=== PATIENT | female | born 1980 | race Caucasian/White ===

== ENCOUNTER 2019-12-15 08:59 | Emergency (ER) | payer OTHER, SELFPAY ==
[2019-12-15 09:03] VITALS: BP 140/97; PULSE 99; RESP 16; TEMP 36.4; O2SAT 96; BMI 46.1
[2019-12-15 09:10] VITALS: BP 140/97; PULSE 99; RESP 16; O2SAT 95
--- NOTE | 2019-12-15 09:19 | W.ED.NECK ---
HPI - Neck Pain/Injury General: Chief Complaint: Neck Pain/Injury Stated Complaint: NECK PAIN Time Seen by Provider: 12/15/19 09:03 History of Present Illness: HPI Narrative: Patient with a history of low back and neck pain. Has had this for years treated by chiropractor about every 2 weeks. Patient did have some neck pain yesterday on left side and she woke up this morning and it was a lot worse on the left and hurting on the right also. Hurts with range of motion of her neck. Has had x-rays and CT of her neck. History of bulging disks. Takes 800 ibuprofen every night complaint: neck pain Onset (ago): hour(s) Quality: burning and aching Duration: constant and progressively worsening Relieving factors: none Associated symptoms: Denies headache(s) or nausea Review of Systems Const: Denies: fever, chills or body aches Eyes: Denies: change in vision or blurry vision ENMT: Denies: throat pain or nasal congestion Card: Denies: chest pain or shortness of breath on exertion Resp: Denies: shortness of breath, productive cough or non-productive cough GI: Denies: abdominal pain, nausea or vomiting Musc: Reports: other (Chronic neck and back pain. Neck pain is worse this morning. Hurts with r); Denies: extremity pain Skin/Breast: Denies: rash Neuro: Reports: other (Patient denies any tingling numbness in her extremities); Denies: headache Psych: Denies: anxiety or depression Nadir/Lymph: Denies: easy bruising PFSH ED PFSH: Social History Smoking and tobacco status: former smoker Physical Exam Const: COMMON NORMALS: no apparent distress, average body habitus and oriented x3 HENMT: COMMON NORMALS: normocephalic HEAD & SCALP: normal to inspection and normocephalic FACE & SINUS: normal facial exam Eye: COMMON NORMALS: conjunctivae normal GENERAL EYE: normal appearance of both eyes CONJUNCTIVA: Yes conjunctivae normal Neck/C-Spine: COMMON NORMALS: no JVD GENERAL: Yes torticollis (Tenderness to the left and right side of the neck extending up into the base of the skull. Pain with range of motion palpation. Worse on the left than the right.) Chest: COMMONS NORMALS: inspection of chest normal Resp: COMMON NORMALS: normal respiratory effort and clear to auscultation bilaterally AUSCULTATION: clear to auscultation bilaterally Cardio: COMMON NORMALS: no JVD, regular rate and regular rhythm RATE: regular rate RHYTHM: regular rhythm GI: COMMON NORMALS: normal to inspection, nondistended, normoactive bowel sounds Extremity: COMMON NORMALS: normal to inspection and full ROM Neuro: COMMON NORMALS: oriented x3 Course Vital Signs: Vital signs: Vital Signs Temperature 97.6 F 12/15/19 09:03 Pulse Rate 99 12/15/19 09:10 Respiratory Rate 16 12/15/19 09:10 Blood Pressure 140/97 12/15/19 09:10 Pulse Oximetry 95 12/15/19 09:10 Coding Level of Care Code ED Computer System Technician for Stevo Fwd Exam Comprehensive
[2019-12-15] MEDS: orphenadrine 30 mg/mL Inj 2 mL 60 MG IM (09:28)
[2019-12-15] MEDS: ketorolac 60 mg/2 mL INJ IM (09:28)
[2019-12-15 09:42] VITALS: PULSE 95; RESP 17; O2SAT 94
== END 2019-12-15 09:43 | disposition home or self-care (01) ==
PROVIDERS: Emergency Provider Nurse Practitioner Family; Family Provider Family Medicine; PCP Family Medicine
DX: M54.5 Low back pain (principal); M54.2 Cervicalgia; G89.29 Other chronic pain; Z87.891 Personal history of nicotine dependence
CPT/HCPCS: 96372; 99281; 99283; J1885; J2360

== ENCOUNTER 2021-04-06 07:13 | Emergency (ER) | payer OTHER, SELFPAY ==
[2021-04-06 07:21] VITALS: BP 159/102; PULSE 80; RESP 16; TEMP 36.7; O2SAT 98; BMI 47.5
--- NOTE | 2021-04-06 07:22 | XR_ITS ---
WS: [id number] Exam: XR ankle RT min 3V* [id number] Date/Time of Exam: 04/06/2021 7:24 AM Reason For Exam: pain No acute fracture or dislocation. The ankle mortise is well-maintained. Mild lateral soft tissue swel ling. XR/XR ankle RT min 3V* [id number] IMPRESSION: 1. Mild lateral soft tissue swelling-no acute fracture.
--- NOTE | 2021-04-06 07:22 | XR_ITS ---
WS: [id number] Exam: XR foot RT min 3V* [id number] Date/Time of Exam: 04/06/2021 7:24 AM Reason For Exam: pain No acute fracture or dislocation. Mild DJD at the first MP joint. No soft tissue foreign bodies are s een. Calcaneal spurs are noted. XR/XR foot RT min 3V* [id number] IMPRESSION: 1. No acute fracture.
--- NOTE | 2021-04-06 07:40 | W.ED.EXTPRO ---
HPI - Extremity Problem General: Chief complaint: Extremity Injury, Lower Stated complaint: fell, R foot pain. PT states she thinks its broke. Time Seen by Provider: 04/06/21 07:16 History of Present Illness: HPI Narrative: 40-year-old female states she was walking and had a injury to her right ankle. In talking to her thumb but she had eversion injury to the right ankle this morning while she was packing her car. She did not hurt anything else she denies striking her head or hurt her hands or wrist. Is complaining of moderate swelling and some early bruising is already started to form she has been able to partially bear weight with some discomfort. MD Complaint: joint swelling and joint pain Onset (ago): minute(s) Pain Consistency: constant Location: right (Ankle) Quality: constant (Throbbing) Relieving factors: elevation and rest Exacerbating factors: range of motion, weight bearing and palpation Associated symptoms: Deny arthralgias, chest pain, fever(s), myalgias, rash or short of breath Review of Systems Const: Denies: fever(s) Card: Denies: chest pain Resp: Denies: dyspnea, productive cough or non-productive cough Skin/Breast: Denies: rash PFSH ED PFSH: Social History Smoking and tobacco status: former smoker Alcohol intake: never Physical Exam Const: COMMON NORMALS: no acute distress GENERAL APPEARANCE: cooperative and comfortable ORIENTATION/CONSCIOUSNESS: Yes awake, Yes oriented to person, Yes oriented to place and Yes oriented to time HENMT: COMMON NORMALS: normocephalic, atraumatic, hearing grossly normal bilaterally and external ears normal HEAD & SCALP: normocephalic and atraumatic EXTERNAL EAR: Yes external ears normal Resp: COMMON NORMALS: normal respiratory effort, No retractions and No use of accessory muscles GI: PALPATION: No Tenderness to palpation present (GI) and No Guarding due to palpation present (GI) Extremity: NARRATIVE EXTREMITY EXAM: Moderate ankle swelling laterally there is a very small superficial abrasion no active bleeding no laceration. Some early ecchymosis laterally tender to the touch patient is able to dorsi and plantarflex with full strength no obvious deformity. Neuro: SENSORIUM/ORIENTATION: Yes oriented to person, Yes oriented to place and Yes oriented to time Skin: COMMON NORMALS: no rashes or lesions noted GENERAL SKIN EXAM: no rashes or lesions noted Course Vital Signs: Vital signs: Vital Signs Temperature 98.1 F 04/06/21 07:21 Pulse Rate 80 04/06/21 07:21 Respiratory Rate 16 04/06/21 07:21 Blood Pressure 159/102 04/06/21 07:21 Pulse Oximetry 98 04/06/21 07:21 MDM - Extremity (Nontraumatic) MDM Narrative: Medical decision making narrative: X-ray of ankle and foot are unremarkable. Ice elevate anti-inflammatories as needed follow-up as needed Discharge Plan Discharge Patient Disposition: Home Clinical Impression: Ankle sprain and strain Condition: Stable Prescriptions: New diclofenac sodium 75 mg tablet,delayed release (DR/EC) 75 mg PO Q12H PRN (Reason: pain) Qty: 20 RF: 0 No Action levothyroxine 125 mcg capsule 125 mcg PO DAILY RF: 0 metformin 1,000 mg tablet 1,000 mg PO DAILY RF: 0 sulfamethoxazole-trimethoprim [Bactrim DS] 800-160 mg tablet 1 tab PO BID RF: 0 glipizide 10 mg tablet 10 mg PO DAILY RF: 0 Zanaflex 4 mg capsule 4 mg PO Q12H PRN (Reason: muscle spasticity) Qty: 14 RF: 0 Discharge Orders: Discharge ED (Routine); Ordered 04/06/21 Ordered By: Alfred Melissa Referrals: Lamar Benito APN [Primary Care Provider] - Patient Instructions: Opioid Safety Activity Restrictions/Additional Instructions: Rest ice elevate anti-inflammatories as needed weightbearing as tolerated Coding Level of Care Code ED Physical Security Manager for Stevo Calloway
[2021-04-06 08:30] VITALS: BP 148/97; PULSE 80; RESP 18; O2SAT 96
== END 2021-04-06 08:32 | disposition home or self-care (01) ==
PROVIDERS: Emergency Provider Family Medicine; PCP Nurse Practitioner Family
DX: S93.401A Sprain of unspecified ligament of right ankle, initial encounter (principal); S96.911A Strain of unspecified muscle and tendon at ankle and foot level, right foot, initial encounter; Z79.84 Long term (current) use of oral hypoglycemic drugs; Z87.891 Personal history of nicotine dependence; X50.1XXA Overexertion from prolonged static or awkward postures, initial encounter
CPT/HCPCS: 73610; 73630; 99282

== ENCOUNTER 2021-05-03 05:29 | Emergency (ER) | payer OTHER, SELFPAY ==
[2021-05-03 05:59] VITALS: BP 126/86; PULSE 93; RESP 16; TEMP 36.4; O2SAT 96; BMI 47.5
--- NOTE | 2021-05-03 06:58 | ED_ITS ---
HPI - Extremity Problem General: Chief complaint: Extremity Injury, Lower Stated complaint: LEFT LEG PAIN Time Seen by Provider: 05/03/21 06:53 History of Present Illness: HPI Narrative: 40-year-old female comes in complaining of left leg pain pain radiating down leg into her toes. She been seen last month for complaint of right ankle pain. Ankle pain seems to better but she has been accommodating the ankle and been seeing a chiropractor that was developed just sciatic-like pain down her leg. There is no other trauma. She has been taking diclofenac. MD Complaint: extremity pain Onset (ago): day(s) Pain Consistency: constant Location: left and lower extremity Quality: sharp and constant Radiation: distal Relieving factors: immobilization Exacerbating factors: range of motion, weight bearing and walking Associated symptoms: Deny arthralgias, chest pain, fever(s), myalgias, rash or short of breath Review of Systems Const: Denies: fever(s) ENMT: Denies: throat pain, ear or mastoid pain, nasal discharge or nasal ric estion Card: Denies: chest pain Resp: Denies: dyspnea, productive cough or non-productive cough GI: Denies: abdominal pain, nausea, vomiting, hematemesis, coffee ground emesis, diarrhea, constipation, bloating, hematochezia or melena : Denies: flank pain, difficulty voiding, dysuria, urinary frequency or urinary urgency Skin/Breast: Denies: rash PFSH ED PFSH: Social History Smoking and tobacco status: former smoker Alcohol intake: never Physical Exam Const: COMMON NORMALS: no acute distress GENERAL APPEARANCE: cooperative and comfortable ORIENTATION/CONSCIOUSNESS: Yes awake, Yes oriented to person, Yes oriented to place and Yes oriented to time Neck/C-Spine: COMMON NORMALS: no JVD Resp: COMMON NORMALS: normal respiratory effort, No retractions, No use of accessory muscles and clear to auscultation bilaterally AUSCULTATION: clear to auscultation bilaterally Cardio: COMMON NORMALS: no JVD, regular rate, regular rhythm and No murmurs present (Cardio) RATE: regular rate RHYTHM: regular rhythm GI: COMMON NORMALS: Soft to palpation and No hepatosplenomegaly present AUSCULTATION: Yes normoactive bowel sounds PALPATION: Yes Soft to palpation, No Tenderness to palpation present (GI), No Guarding due to palpation present (GI) and Yes No hepatosplenomegaly present Extremity: COMMON NORMALS: normal to inspection, capillary refill normal, no clubbing, cyanosis or edema, no calf tenderness and no pedal edema NARRATIVE EXTREMITY EXAM: Dorsum plantar flexion strength 5 5 sensation lower extremities normal positive straight leg raising on the left leg. Neuro: SENSORIUM/ORIENTATION: Yes oriented to person, Yes oriented to place and Yes oriented to time Skin: COMMON NORMALS: no rashes or lesions noted GENERAL SKIN EXAM: no rashes or lesions noted Course Vital Signs: Vital signs: Vital Signs Temperature 97.5 F L 05/03/21 05:59 Pulse Rate 91 05/03/21 09:00 Respiratory Rate 16 05/03/21 09:00 Blood Pressure 130/84 05/03/21 09:00 Pulse Oximetry 97 05/03/21 09:00 MDM - Extremity (Nontraumatic) MDM Narrative: Medical decision making narrative: Pain improved with interventions here. She does have some sciatica-like symptoms we will discharge her home with pain muscle relaxers and anti-inflammatories. Use of diclofenac she has previously been prescribed along with the other medications. Oriented however follow-up with her primary care for symptoms recheck. Discharge Plan Discharge Patient Disposition: Home Clinical Impression: Sciatica Condition: Stable Prescriptions: New hydrocodone-acetaminophen 5-325 mg tablet 1 tab PO Q6H PRN (Reason: pain) Qty: 20 RF: 0 tizanidine 4 mg capsule 4 mg PO Q6H PRN (Reason: muscle spasticity) Qty: 30 RF: 0 prednisone 20 mg tablet 20 mg PO DAILY Qty: 16 RF: 0 No Action levothyroxine 125 mcg capsule 125 mcg PO DAILY RF: 0 metformin 1,000 mg tablet 1,000 mg PO DAILY RF: 0 sulfamethoxazole-trimethoprim [Bactrim DS] 800-160 mg tablet 1 tab PO BID RF: 0 glipizide 10 mg tablet 10 mg PO DAILY RF: 0 Zanaflex 4 mg capsule 4 mg PO Q12H PRN (Reason: muscle spasticity) Qty: 14 RF: 0 diclofenac sodium 75 mg tablet,delayed release (DR/EC) 75 mg PO Q12H PRN (Reason: pain) Qty: 20 RF: 0 Discharge Orders: Discharge ED (Routine); Ordered 05/03/21 Ordered By: Alfred Melissa Referrals: Benito,HOLLY Newton [Primary Care Provider] - Discharge Diet: Usual diet Discharge Activity: Resume usual activity Patient Instructions: Opioid Safety Coding Level of Care Code ED Decal Transferrer for Mickeyg Fwd Exam Detailed
[2021-05-03] MEDS: ketorolac 30 mg/mL INJ IVP (08:19)
[2021-05-03] MEDS: orphenadrine 30 mg/mL Inj 2 mL 60 MG IVP (08:21)
[2021-05-03] MEDS: dexamethasone 10 mg/mL INJ IVP (08:23)
[2021-05-03] MEDS: ondansetron 2 mg/ML SDV 2 mL 4 MG IVP (08:23)
[2021-05-03 08:24] VITALS: RESP 18
[2021-05-03] MEDS: morphine 4 mg/mL SDV 1 mL IVP (08:24)
[2021-05-03 09:00] VITALS: BP 130/84; PULSE 91; RESP 16; O2SAT 97
== END 2021-05-03 09:01 | disposition home or self-care (01) ==
PROVIDERS: Emergency Provider Family Medicine; PCP Nurse Practitioner Family
DX: M54.30 Sciatica, unspecified side (principal); Z79.84 Long term (current) use of oral hypoglycemic drugs; Z87.891 Personal history of nicotine dependence
CPT/HCPCS: 96374; 96375; 99283; J1100; J1885; J2270; J2360; J2405

== ENCOUNTER 2021-09-13 13:10 | Outpatient (CLI) | payer OTHER, SELFPAY ==
[2021-09-13 13:25] VITALS: BP 155/94; PULSE 90; RESP 18; TEMP 36.7; O2SAT 94; BMI 46.1
[2021-09-13 13:52] VITALS: BP 126/85; PULSE 80; RESP 18; TEMP 36.6; O2SAT 95
[2021-09-13 14:47] VITALS: BP 126/90; PULSE 78; RESP 18; TEMP 36.6; O2SAT 97
== END 2021-09-13 13:11 | disposition home or self-care (01) ==
LOC: OPS 13:11
PROVIDERS: PCP Nurse Practitioner Family; Visit Provider Nurse Practitioner Family
DX: U07.1 COVID-19 (principal)
CPT/HCPCS: 96365

== ENCOUNTER 2024-05-05 17:15 | Emergency (ER) | payer OTHER, SELFPAY ==
--- NOTE | 2024-05-05 17:17 | XRR_ITS ---
PROCEDURE INFORMATION: Exam: XR Chest Exam date and time: 05/05/2024 5:52 PM Age: 43 years old Clinical indication: Fever; Additional info: Post op fever TECHNIQUE: Imaging protocol: Radiologic exam of the chest. Views: 1 view. COMPARISON: No relevant prior studies available. FINDINGS: Lungs: No focal consolidation. Pleural spaces: No evidence of pneumothorax. No evidence of pleural effusion. Heart/Mediastinum: Cardiomediastinal silhouette is within normal limits. Bones/joints: No evidence of acute osseous abnormality. XR/XR chest 1V portable [id number] IMPRESSION: 1. No acute cardiopulmonary abnormality.
[2024-05-05 17:20] VITALS: BP 141/88; PULSE 103; RESP 18; TEMP 36.6; O2SAT 97
--- NOTE | 2024-05-05 18:02 | W.ED.FEVER ---
HPI - Fever General: Chief Complaint: Fever Stated Complaint: fever 2 days post OP Time Seen by Provider: 05/05/24 17:52 Source: patient Mode of arrival: ambulatory Limitations: no limitations History of Present Illness: 43-year-old female states she had a hysterectomy on Monday states been learning some low-grade fevers with the highest being 100 states she would make sure she does not develop any type of infection. States she had some mild lower abdominal pain denies any severe abdominal pain she had no discharge or bleeding denies any worsening improving factors. Associated symptoms: Reports chills; Deny abdominal pain, chest pain, diarrhea, dysuria, headache(s), nausea or vomiting Review of Systems Const: Reports: fever(s) and chills; Denies: body aches or change in appetite Eyes: Denies: blurry vision or eye discomfort ENMT: Denies: throat pain or dental pain Card: Denies: chest pain Resp: Denies: dyspnea GI: Denies: abdominal pain, nausea, vomiting or diarrhea : Denies: dysuria Musc: Denies: neck pain or back pain Skin/Breast: Denies: rash Neuro: Denies: headache(s) PFSH ED PFSH: Social History Smoking and tobacco/nicotine status: former use of tobacco/nicotine Alcohol intake: never Substance/Drug Use: never Physical Exam Const: COMMON NORMALS: no acute distress, patient oriented x3 and healthy appearing HENMT: COMMON NORMALS: normocephalic and atraumatic HEAD & SCALP: normocephalic and atraumatic Neck/C-Spine: COMMON NORMALS: full ROM and supple Chest: COMMONS NORMALS: normal inspection of the chest Resp: COMMON NORMALS: normal respiratory effort, No retractions, No use of accessory muscles and clear to auscultation bilaterally AUSCULTATION: clear to auscultation bilaterally Cardio: COMMON NORMALS: regular rate, regular rhythm and No murmurs present (Cardio) RATE: regular rate RHYTHM: regular rhythm GI: COMMON NORMALS: Soft to palpation, non-tender and no masses PALPATION: Yes Soft to palpation OTHER: incisions c/d/i Extremity: COMMON NORMALS: normal to inspection and full ROM Neuro: COMMON NORMALS: patient oriented x3, moves all extremities and no focal motor deficits Psych: COMMON NORMALS: mental status grossly normal, Normal thought process present and cooperative THOUGHT PROCESS: Normal thought process present Skin: COMMON NORMALS: no rashes or lesions noted and no wounds GENERAL SKIN EXAM: no rashes or lesions noted Course Vital Signs: Vital signs: Vital Signs Temperature 97.9 F 05/05/24 17:20 Pulse Rate 112 H 05/05/24 19:29 Respiratory Rate 16 05/05/24 19:29 Blood Pressure 108/71 05/05/24 19:29 Pulse Oximetry 97 05/05/24 19:29 Oxygen Delivery Me thod Room Air 05/05/24 19:29 MDM - Fever Medical Decision Making Patient presents here with fever she has been afebrile here she been well-appearing here CT scan and urinalysis here are all normal she does have a slight white count could be reactive from her recent surgery she has no signs of infection here informed her she needs to call her surgeon tomorrow if she has any worsening symptoms she is to return she states she feels improved here she stable for discharge at this time. Medical Records I reviewed the patient's medical records. Lab Data I reviewed the patient's lab results. 05/05/24 18:27 05/05/24 18:27 Radiology Impressions Chest X-Ray 05/05/24 17:17 IMPRESSION: 1. No acute cardiopulmonary abnormality. Abdomen/Pelvis CT 05/05/24 18:39 IMPRESSION: 1. No evidence of acute abnormality in the abdomen or pelvis. Laboratory Results WBC 18.49 10^3/uL (3.29-11.43) H 05/05/24 18: RBC 4.37 10^6/uL (3.85-5.65) 05/05/24 18: Hgb 13.10 g/dL (11.27-16.99) 05/05/24 18: Hct 40.7 % (36-47) 05/05/24 18: MCV 93.1 fl (85-98) 05/05/24 18: MCH 30.0 pg (27-33) 05/05/24 18: MCHC 32.2 g/dL (30-55) 05/05/24 18: RDW 12.0 % (12.1-15.1) L 05/05/24 18: Plt Count 312 10^3/cmm (157-399) 05/05/24 18: MPV 10.3 fL (7.4-10.4) 05/05/24 18: Neut % (Auto) 80.8 % 05/05/24 18: Lymph % (Auto) 11.6 % 05/05/24 18: [place] % (Auto) 5.1 % 05/05/24 18: Eos % (Auto) 1.5 % 05/05/24 18: Baso % (Auto) 0.2 % 05/05/24 18: Neut # (Auto) 14.94 10^3/uL (1.8-7.7) H 05/05/24 18: Lymph # (Auto) 2.2 10^3/uL (0.8-4.8) 05/05/24 18: [place] # (Auto) 1.0 10^3/uL (0.2-0.9) H 05/05/24 18: Eos # (Auto) 0.3 10^3/uL (0.0-0.8) 05/05/24 18: Baso # (Auto) 0.0 10^3/uL (0.0-0.1) 05/05/24 18: Nucleated RBC % (auto) 0 % 05/05/24 18: Nucleated RBCs # 0.0 /100WBC 05/05/24 18: Sodium 137 mmol/L (136-145) 05/05/24 18: Potassium 3.8 mmol/L (3.5-5.1) 05/05/24 18: Chloride 98 mmol/L (98-107) 05/05/24 18: Carbon Dioxide 27 mmol/L (22-29) 05/05/24 18: Anion Gap 15.8 (5-19) 05/05/24 18: BUN 10 mg/dL (6-20) 05/05/24 18: Creatinine 0.7 mg/dL (0.5-0.9) 05/05/24 18: GFR Calculation 91.8 mL/min (90-130) 05/05/24 18: Glucose 148 mg/dL (65-115) H 05/05/24 18: Calculated Osmolality 286 mOsm/kg (285-295) 05/05/24 18:27 Lactic Acid 1.2 mmol/L (0.5-2.2) 05/05/24 18:27 Calcium 9.8 mg/dL (8.5-10.5) 05/05/24 18:27 Total Bilirubin 0.7 mg/dL (0.15-1.2) 05/05/24 18:27 AST 9 U/L (0-32) 05/05/24 18: ALT 14 U/L (0-33) 05/05/24 18:27 Alkaline Phosphatase 61 U/L (35-105) 05/05/24 18:27 Total Protein 8.5 g/dL (6.6-8.7) 05/05/24 18: Albumin 4.0 g/dL (3.5-5.2) 05/05/24 18: Globulin 4.5 g/dL (1.3-4.6) 05/05/24 18:27 Lipase 28 U/L (13-60) 05/05/24 18:27 Urine Color Yellow (Yellow) 05/05/24 19:21 Urine Appearance Clear (CLEAR) 05/05/24 19:21 Urine pH 8 (5-7) H 05/05/24 19:21 Ur Specific [place] 1.005 (1.005-1.030) 05/05/24 19:21 Urine Protein Neg (Negative) 05/05/24 19:21 Urine Glucose (UA) Norm (Normal) 05/05/24 19:21 Urine Ketones 1+ (Negative) H 05/05/24 19:21 Urine Blood Neg (Negative) 05/05/24 19:21 Urine Nitrate Negative (Negative) 05/05/24 19:21 Urine Bilirubin Neg (Negative) 05/05/24 19:21 Urine Urobilinogen 1 mg/dL (Negative) H 05/05/24 19:21 Ur Leukocyte Esterase Negative (Negative) 05/05/24 19:21 Urine RBC Cancelled 05/05/24 19:21 Urine WBC Cancelled 05/05/24 19:21 Ur Squamous Epith Cells Cancelled 05/05/24 19:21 Ur Transition Epith Cell Cancelled 05/05/24 19:21 Ur Renal Epithelial Cell Cancelled 05/05/24 19:21 Calcium Oxalate Crystal Cancelled 05/05/24 19:21 Uric Acid Crystals Cancelled 05/05/24 19:21 Triple Phos Crystals Cancelled 05/05/24 19:21 Other Crystals Cancelled 05/05/24 19:21 Amorphous Sediment Cancelled 05/05/24 19:21 Urine Bacteria Cancelled 05/05/24 19:21 Hyaline Casts Cancelled 05/05/24 19:21 Fine Granular Casts Cancelled 05/05/24 19:21 Coarse Granular Casts Cancelled 05/05/24 19:21 RBC Casts Cancelled 05/05/24 19:21 Other Casts Cancelled 05/05/24 19:21 Urine Mucus Cancelled 05/05/24 19:21 Urine Trichomonas Cancelled 05/05/24 19:21 Urine Yeast Cancelled 05/05/24 19:21 Urine Sperm Cancelled 05/05/24 19:21 Ur Oval Fat Bodies Cancelled 05/05/24 19:21 All radiology interpretation(s) finalized by discharge Discharge Plan Discharge Patient Disposition: Home Clinical Impression: Fever Condition: Stable Prescriptions: No Action levothyroxine 125 mcg capsule 125 mcg PO DAILY metformin 1,000 mg tablet 1,000 mg PO DAILY sulfamethoxazole-trimethoprim [Bactrim DS] 800-160 mg tablet 1 tab PO BID glipizide 10 mg tablet 10 mg PO DAILY hydrocodone-acetaminophen 5-325 mg tablet 1 tab PO Q6H PRN (Reason: pain) Qty: 20 0RF tizanidine 4 mg capsule 4 mg PO Q6H PRN (Reason: muscle spasticity) Qty: 30 0RF Rx Instructions: do not exceed 3 doses per 24 hrs prednisone 20 mg tablet 20 mg PO DAILY Qty: 16 0RF Rx Instructions: 1 po TID for 3 days, 1 po BID for 2 days 1 po QD for 3 days. Zanaflex 4 mg capsule 4 mg PO Q12H PRN (Reason: muscle spasticity) Qty: 14 0RF diclofenac sodium 75 mg tablet,delayed release (DR/EC) 75 mg PO Q12H PRN (Reason: pain) Qty: 20 0RF Discharge Orders: Discharge ED (Routine); Ordered 05/05/24 Ordered By: Horace Hines Referrals: Benito,Lamar, WATER PIPE INSTALLER [Primary Care Provider] - Discharge Diet: Advance as tolerated Discharge Activity: Resume usual activity Patient Instructions: Fever in Adults (ED) Coding Level of Care Code ED Wearing Apparel Folder for Stevo Calloway
[2024-05-05 18:32] LABS: Basophils % 0.2 %; Eosinophils # 0.3 10^3/uL (0.0-0.8); Eosinophils % 1.5 %; Hematocrit 40.7 % (36-47); Lymphocytes # 2.2 10^3/uL (0.8-4.8); Lymphocytes % 11.6 %; Mean Corpuscular HGB Conc 32.2 g/dL (30-55); Mean Corpuscular Volume 93.1 fl (85-98); Mean Platelet Volume 10.3 fL (7.4-10.4); Monocytes % 5.1 %; Neutrophils # 14.94 10^3/uL (1.8-7.7); Neutrophils % 80.8 %; Nucleated Red Blood Cells % 0 %; Platelet Count 312 10^3/cmm (157-399); Red Blood Count 4.37 10^6/uL (3.85-5.65); White Blood Count 18.49 10^3/uL (3.29-11.43)
--- NOTE | 2024-05-05 18:39 | CTR_ITS ---
PROCEDURE INFORMATION: Exam: CT Abdomen And Pelvis With Contrast Exam date and time: 05/05/2024 6:48 PM Age: 43 years old Clinical indication: Abdominal pain; Localized; Prior surgery; Surgery date: Post-operative (0-2 days); Surgery type: Hysterectomy 05/03/2024; Patient HX: C/O lower abd pain with fever post hysterectomy two days ago. TECHNIQUE: Imaging protocol: Computed tomography of the abdomen and pelvis with contrast. Radiation optimization: All CT scans at this facility use at least one of these dose optimization techniques: automated exposure control; mA and/or kV adjustment per patient size (includes targeted exams where dose is matched to clinical indication); or iterative reconstruction. Contrast material: OMNI 350; Contrast volume: 100 ml; Contrast route: INTRAVENOUS (IV); COMPARISON: CR (CHEST, ) 05/05/2024 5:52 PM RADIATION DOSE METRICS: Total DLP (mGy-cm): 1454.03 FINDINGS: Lungs: Subsegmental bibasilar atelectasis. The visualized lung bases are otherwise grossly clear. Diaphragm: No evidence of diaphragmatic defect. Liver: Hepatomegaly and hepatic steatosis with right lobe measuring up to 25 cm. No evidence of focal hepatic lesion. Gallbladder and biliary ducts: Unremarkable. No intra-hepatic or extra-hepatic biliary dilatation. Pancreas: Unremarkable. Spleen: Unremarkable. Adrenal glands: Unremarkable. Kidneys and ureters: No renal parenchymal abnormality. No hydronephrosis or ureteral stone. Stomach and bowel: No evidence of bowel obstruction or perienteric inflammatory changes. Appendix: Normal appendix. Intraperitoneal space: No evidence of free air or fluid collection. Vasculature: No aneurysmal dilatation or dissection of the abdominal aorta. The celiac trunk, SMA and JACKIE are grossly patent. No evidence of IVC thrombus. The portal vein, SMV and splenic veins are grossly patent. Lymph nodes: No adenopathy. Urinary bladder: Grossly unremarkable. Reproductive: Postsurgical changes compatible with recent hysterectomy. There is edema and trace fluid in the surgical bed, not unexpected. No fluid collection to suggest abscess or hematoma. Bones/joints: No evidence of acute fracture or aggressive osseous lesion. Severe L5-S1 central stenosis secondary to a prominent disc osteophyte complex. Consider correlation with follow-up nonemergent MRI of the lumbar spine. Soft tissues: No evidence of fluid collection or hematoma in the superficial soft tissues. Postsurgical changes of the ventral abdominal wall with edema, possibly reflecting laparoscopy ports. CT/CT abdomen pelvis w con* [id number] IMPRESSION: 1. No evidence of acute abnormality in the abdomen or pelvis.
[2024-05-05] MEDS: iohexol 350 mg/mL 500 mL Btl (per mL) IV (18:48)
[2024-05-05 18:55] LABS: Alanine Aminotransferase 14 U/L (0-33); Alkaline Phosphatase 61 U/L (35-105); Anion Gap 15.8 (5-19); Aspartate Amino Transferase 9 U/L (0-32); Blood Urea Nitrogen 10 mg/dL (6-20); Calcium 9.8 mg/dL (8.5-10.5); Carbon Dioxide 27 mmol/L (22-29); Chloride 98 mmol/L (98-107); Creatinine Clr Calc Pharmacy 169.2325; Globulin 4.5 g/dL (1.3-4.6); Glomerular Filtration Rate 91.8 mL/min (90-130); Glucose 148 mg/dL (65-115); Lipase 28 U/L (13-60); Osmolality Calculated 286 mOsm/kg (285-295); Potassium 3.8 mmol/L (3.5-5.1); Sodium 137 mmol/L (136-145); Total Bilirubin 0.7 mg/dL (0.15-1.2); Total Protein 8.5 g/dL (6.6-8.7)
[2024-05-05 19:27] LABS: Lactic Sepsis W/Reflex 1.2 mmol/L (0.5-2.2)
[2024-05-05 19:29] VITALS: BP 108/71; PULSE 112; RESP 16; O2SAT 97
[2024-05-05 19:30] LABS: Charge for UA Resulting for Rev
[2024-05-05 19:40] LABS: Add Urine Microscopic? NO; Bilirubin Urine Neg (Negative); Blood Urine Neg (Negative); Glucose Urine UA Norm (Normal); Ketones Urine 1+ (Negative); Leukocyte Esterase Urine Negative (Negative); Nitrate Urine Negative (Negative); Protein Urine Neg (Negative); Specific Gravity, Urine 1.005 (1.005-1.030); Urine Appearance Clear (CLEAR); Urine Color Yellow (Yellow); Urobilinogen Urine 1 mg/dL (Negative); pH Urine 8 (5-7)
== END 2024-05-05 20:03 | disposition home or self-care (01) ==
PROVIDERS: Emergency Medicine; Emergency Provider Emergency Medicine; PCP Nurse Practitioner Family
DX: R50.9 Fever, unspecified (principal); Z79.84 Long term (current) use of oral hypoglycemic drugs; Z87.891 Personal history of nicotine dependence
CPT/HCPCS: 36415; 71045; 74177; 80053; 81003; 83605; 83690; 85025; 99285; Q9967

== ENCOUNTER 2025-01-15 09:50 | Emergency (ER) | payer OTHER, SELFPAY ==
[2025-01-15 09:58] VITALS: BP 141/93; PULSE 88; RESP 16; TEMP 36.2; O2SAT 100; BMI 39.5
--- NOTE | 2025-01-15 10:04 | W.ED.ABDPA2 ---
HPI - Abdominal Pain General: Chief Complaint: Abdominal Pain Stated Complaint: upper abd pain, dizzy Time Seen by Provider: 01/15/25 09:59 History of Present Illness: 44-year-old female who presents to the emergency room with complaints of abdominal pain/epigastric discomfort. She has had this intermittently. In talking to her it sounds like she has had some abdominal pain in the past but has not been nearly as tense as this. She denies any hematochezia melena hematemesis or coffee-ground emesis denies any dysuria urgency or frequency. No fever sweats or chills she has not noticed anything that exacerbates or relieves it. Patient is on a GLP-1 for her diabetes. Associated Symptoms: Reports nausea; Denies chills, dysuria and fever(s) Related Data Home Medications ?Medication ?Instructions ?Recorded ?Confirmed glipizide 10 mg tablet 10 mg PO DAILY 05/16/20 05/16/20 levothyroxine 125 mcg capsule 125 mcg PO DAILY 05/16/20 05/16/20 metformin 1,000 mg tablet 1,000 mg PO DAILY 05/16/20 05/16/20 Previous Rx's ?Medication ?Instructions ?Recorded tizanidine 4 mg capsule (Zanaflex) 4 mg PO Q12H PRN muscle spasticity 12/15/19 #14 caps diclofenac sodium 75 mg 75 mg PO Q12H PRN pain #20 tabs 04/06/21 tablet,delayed release hydrocodone 5 mg-acetaminophen 325 1 tab PO Q6H PRN pain #20 tabs 05/03/21 mg tablet prednisone 20 mg tablet 20 mg PO DAILY #16 tabs 05/03/21 tizanidine 4 mg capsule 4 mg PO Q6H PRN muscle spasticity 05/03/21 #30 caps ciprofloxacin HCl 250 mg tablet 250 mg PO BID #14 tabs 01/15/25 (Cipro) ondansetron HCl 4 mg tablet 4 mg PO Q6H PRN nausea and 01/15/25 vomiting #20 tabs Allergies Allergy/AdvReac Type Severity Reaction Status Date / Time No Known Allergies Allergy Verified 05/05/24 17:25 Review of Systems Const: Denies: fever(s) or chills Card: Denies: chest pain Resp: Denies: dyspnea GI: Reports: abdominal pain and nausea : Denies: dysuria, urinary frequency or urinary urgency Musc: Denies: neck pain or back pain Skin/Breast: Denies: rash PFSH ED PFSH: Social History Smoking and tobacco/nicotine status: former use of tobacco/nicotine Alcohol intake: never Substance/Drug Use: never Physical Exam Const: GENERAL APPEARANCE: cooperative ORIENTATION/CONSCIOUSNESS: Yes awake, Yes oriented to person, Yes oriented to place and Yes oriented to time HENMT: COMMON NORMALS: normocephalic, atraumatic and hearing grossly normal bilaterally HEAD & SCALP: normocephalic and atraumatic Resp: COMMON NORMALS: normal respiratory effort, No retractions, No use of accessory muscles and clear to auscultation bilaterally AUSCULTATION: clear to auscultation bilaterally Cardio: COMMON NORMALS: regular rate, regular rhythm and No murmurs present (Cardio) RATE: regular rate RHYTHM: regular rhythm GI: COMMON NORMALS: Soft to palpation and No hepatosplenomegaly present AUSCULTATION: Yes normoactive bowel sounds PALPATION: Yes Soft to palpation, No Tenderness to palpation present (GI), No Guarding due to palpation present (GI) and Yes No hepatosplenomegaly present Extremity: COMMON NORMALS: normal to inspection, capillary refill normal, no clubbing, cyanosis or edema, no calf tenderness and no pedal edema Neuro: SENSORIUM/ORIENTATION: Yes oriented to person, Yes oriented to place and Yes oriented to time Skin: COMMON NORMALS: no rashes or lesions noted GENERAL SKIN EXAM: no rashes or lesions noted Course Vital Signs: Vital signs: Vital Signs Temperature 97.2 F L 01/15/25 09:58 Pulse Rate 87 01/15/25 13:50 Respiratory Rate 16 01/15/25 09:58 Blood Pressure 124/86 01/15/25 13:50 Pulse Oximetry 99 01/15/25 13:50 Oxygen Delivery Me thod Room Air 01/15/25 13:30 MDM - Abdominal Pain Medical Decision Making No leukocytosis liver functions normal no abnormality on the CT she does have signs of gastroenteritis some mild cystitis clear liquid diet advance as tolerated started on antiemetics as needed. Also cover with oral antibiotics for the cystitis. If her discomfort persists she may need follow-up with her primary care doctor consider PPIs or evaluation for biliary dyskinesia. Follow-up with primary care Medical Records I reviewed the patient's medical records. Lab Data I reviewed the patient's lab results. 01/15/25 10:16 01/15/25 10:16 Labs/Radiology: Radiology Impressions Abdomen/Pelvis CT 01/15/25 10:06 IMPRESSION: 1. Fatty liver. 2. Tiny esophageal hiatal hernia. Air-fluid level in the stomach. 3. A few air-fluid levels in normal caliber small bowel. No evidence of high-grade obstruction. 4. Normal appendix. 5. Prior hysterectomy. 6. No hydronephrosis in either kidney. Chest X-Ray 01/15/25 10:57 IMPRESSION: 1. Negative chest. Laboratory Results WBC 9.74 10^3/uL (3.29-11.43) 01/15/25 10:16 RBC 4.82 10^6/uL (3.85-5.65) 01/15/25 10:16 Hgb 14.40 g/dL (11.27-16.99) 01/15/25 10:16 Hct 43.4 % (36-47) 01/15/25 10:16 MCV 90.0 fl (85-98) 01/15/25 10:16 MCH 29.9 pg (27-33) 01/15/25 10:16 MCHC 33.2 g/dL (30-55) 01/15/25 10:16 RDW 11.9 % (12.1-15.1) L 01/15/25 10:16 Plt Count 256 10^3/cmm (157-399) 01/15/25 10:16 MPV 11.0 fL (7.4-10.4) H 01/15/25 10:16 Neut % (Auto) 61.3 % 01/15/25 10:16 Lymph % (Auto) 30.3 % 01/15/25 10:16 [place] % (Auto) 4.4 % 01/15/25 10:16 Eos % (Auto) 3.6 % 01/15/25 10:16 Baso % (Auto) 0.2 % 01/15/25 10:16 Neut # (Auto) 5.97 10^3/uL (1.8-7.7) 01/15/25 10:16 Lymph # (Auto) 3.0 10^3/uL (0.8-4.8) 01/15/25 10:16 [place] # (Auto) 0.4 10^3/uL (0.2-0.9) 01/15/25 10:16 Eos # (Auto) 0.4 10^3/uL (0.0-0.8) 01/15/25 10:16 Baso # (Auto) 0.0 10^3/uL (0.0-0.1) 01/15/25 10:16 Nucleated RBC % (auto) 0 % 01/15/25 10:16 Nucleated RBCs # 0.0 /100WBC 01/15/25 10:16 Sodium 139 mmol/L (136-145) 01/15/25 10:16 Potassium 3.2 mmol/L (3.5-5.1) L 01/15/25 10:16 Chloride 104 mmol/L (98-107) 01/15/25 10:16 Carbon Dioxide 20 mmol/L (22-29) L 01/15/25 10:16 Anion Gap 18.2 (5-19) 01/15/25 10:16 BUN 13 mg/dL (6-20) 01/15/25 10:16 Creatinine 0.7 mg/dL (0.5-0.9) 01/15/25 10:16 GFR Calculation 91.3 mL/min (90-130) 01/15/25 10:16 Glucose 142 mg/dL (65-115) H 01/15/25 10:16 Calculated Osmolality 291 mOsm/kg (285-295) 01/15/25 10:16 Calcium 10.1 mg/dL (8.5-10.5) 01/15/25 10:16 Total Bilirubin 0.6 mg/dL (0.15-1.2) 01/15/25 10:16 AST 18 U/L (0-32) 01/15/25 10:16 ALT 27 U/L (0-33) 01/15/25 10:16 Alkaline Phosphatase 63 U/L (35-105) 01/15/25 10:16 Total Protein 7.4 g/dL (6.6-8.7) 01/15/25 10:16 Albumin 4.0 g/dL (3.5-5.2) 01/15/25 10:16 Globulin 3.4 g/dL (1.3-4.6) 01/15/25 10:16 Lipase 55 U/L (13-60) 01/15/25 10:16 HCG, Qual Negative (Negative) 01/15/25 10:16 Urine Color Yellow (Yellow) 01/15/25 12:10 Urine Appearance Clear (CLEAR) 01/15/25 12:10 Urine pH 7.0 (5-7) 01/15/25 12:10 Ur Specific [place] 1.068 (1.005-1.030) H 01/15/25 12:10 Urine Protein Negative (Negative) 01/15/25 12:10 Urine Glucose (UA) Negative (Normal) 01/15/25 12:10 Urine Ketones Negative (Negative) 01/15/25 12:10 Urine Blood Negative (Negative) 01/15/25 12:10 Urine Nitrate Negative (Negative) 01/15/25 12:10 Urine Bilirubin Negative (Negative) 01/15/25 12:10 Urine Urobilinogen 0.2 mg/dL (Negative) 01/15/25 12:10 Ur Leukocyte Esterase 1+ (Negative) A 01/15/25 12:10 Urine RBC 0-2 /hpf (0-2) 01/15/25 12:10 Urine WBC 21-50 /hpf (0-5) H 01/15/25 12:10 Ur Squamous Epith Cells 0-5 /hpf (0-5) 01/15/25 12:10 Amorphous Sediment Not Reportable 01/15/25 12:10 Urine Bacteria 2+ /hpf (NONE) H 01/15/25 12:10 Hyaline Casts 0.40 /lpf 01/15/25 12:10 All radiology interpretation(s) finalized by discharge Discharge Plan Discharge Patient Disposition: Home Clinical Impression: Abdominal pain, Cystitis Condition: Stable Prescriptions: New ciprofloxacin HCl [Cipro] 250 mg tablet 250 mg PO BID Qty: 14 0RF ondansetron HCl 4 mg tablet 4 mg PO Q6H PRN (Reason: nausea and vomiting) Qty: 20 0RF Discontinued sulfamethoxazole-trimethoprim [Bactrim DS] 800-160 mg tablet 1 tab PO BID No Action levothyroxine 125 mcg capsule 125 mcg PO DAILY metformin 1,000 mg tablet 1,000 mg PO DAILY glipizide 10 mg tablet 10 mg PO DAILY hydrocodone-acetaminophen 5-325 mg tablet 1 tab PO Q6H PRN (Reason: pain) Qty: 20 0RF tizanidine 4 mg capsule 4 mg PO Q6H PRN (Reason: muscle spasticity) Qty: 30 0RF Rx Instructions: do not exceed 3 doses per 24 hrs prednisone 20 mg tablet 20 mg PO DAILY Qty: 16 0RF Rx Instructions: 1 po TID for 3 days, 1 po BID for 2 days 1 po QD for 3 days. Zanaflex 4 mg capsule 4 mg PO Q12H PRN (Reason: muscle spasticity) Qty: 14 0RF diclofenac sodium 75 mg tablet,delayed release (DR/EC) 75 mg PO Q12H PRN (Reason: pain) Qty: 20 0RF Discharge Orders: Discharge ED (Routine); Ordered 01/15/25 Ordered By: Alfred Melissa Referrals: Thong,HOLLY Newton [Primary Care Provider] - Discharge Diet: Usual diet Discharge Activity: Resume usual activity Patient Instructions: Abdominal Pain (ED), Opioid Safety, Pain Management Activity Restrictions/Additional Instructions: Thank you for choosing [facility] for your healthcare needs today. It is very important that you follow up as instructed or that you return to the Emergency Department should you have concerns or if your condition changes or worsens in any way. You are seen emergency room clinic abdominal discomfort. Your liver functions and bilirubin are normal CT did not show any sign of gallbladder disease. There is some mild inflammation of your small bowel suggestive of gastroenteritis. Additionally urinalysis showed mild cystitis. Recommend you start on oral antibiotics ciprofloxacin 250 twice daily for 7 days we also gave you prescription for nausea medicines to use as needed. Follow-up with your primary care doctor if you continue to have symptoms she could consider reducing or stopping the metformin or starting on medications for your stomach. Additionally they may do further testing of your gallbladder. Print Language: [place] Coding Level of Care Code ED Panel Saw Operator for Stevo Calloway
--- NOTE | 2025-01-15 10:06 | CT_ITS ---
WS: [id number] CT ABDOMEN PELVIS TECHNIQUE: Contrast-enhanced CT of the abdomen and pelvis with coronal and sagittal reformatted images. CLINICAL INFORMATION: abd pain COMPARISON: 2023 DLP: 1935.[address] scans at [facility] use at least one of these dose optimization techniques: automated exposure control; mA and/or kV adjustment per patient size (includes targeted exams where dose is matched to clinical indication); or iterative reconstruction. FINDINGS: Lung bases are well aerated. Fatty liver. Normal spleen. Normal GE junction. Air-fluid level in the stomach. Normal portal vein and splenic vein. Normal gallbladder. Normal pancreatic parenchymal enhancement. Adrenal glands are normal. Normal caliber abdominal aorta. Celiac and SMA are patent. Adrenal glands are normal. Normal renal parenchymal enhancement. No hydronephrosis. Sigmoid diverticulosis. No evidence of acute diverticulitis. Normal appendix in the RIGHT lower quadrant. Tiny fat-containing umbilical hernia. A few air-fluid levels in normal caliber small bowel. No evidence of high-grade obstruction. Disc osteophyte complex L5-S1 with severe central canal stenosis. This can be followed up with MRI if indicated. Prior hysterectomy. CT/CT abdomen pelvis w con* [id number] IMPRESSION: 1. Fatty liver. 2. Tiny esophageal hiatal hernia. Air-fluid level in the stomach. 3. A few air-fluid levels in normal caliber small bowel. No evidence of high-g rade obstruction. 4. Normal appendix. 5. Prior hysterectomy. 6. No hydronephrosis in either kidney.
[2025-01-15 10:23] LABS: Basophils % 0.2 %; Eosinophils # 0.4 10^3/uL (0.0-0.8); Eosinophils % 3.6 %; Hematocrit 43.4 % (36-47); Lymphocytes % 30.3 %; Mean Corpuscular HGB Conc 33.2 g/dL (30-55); Mean Corpuscular Hemoglobin 29.9 pg (27-33); Monocytes # 0.4 10^3/uL (0.2-0.9); Monocytes % 4.4 %; Neutrophils # 5.97 10^3/uL (1.8-7.7); Neutrophils % 61.3 %; Nucleated Red Blood Cells % 0 %; Platelet Count 256 10^3/cmm (157-399); Red Blood Count 4.82 10^6/uL (3.85-5.65); Red Cell Distribution Width 11.9 % (12.1-15.1); White Blood Count 9.74 10^3/uL (3.29-11.43)
[2025-01-15 10:30] VITALS: BP 110/72; PULSE 88; O2SAT 96
[2025-01-15 10:42] LABS: Alanine Aminotransferase 27 U/L (0-33); Alkaline Phosphatase 63 U/L (35-105); Anion Gap 18.2 (5-19); Aspartate Amino Transferase 18 U/L (0-32); Blood Urea Nitrogen 13 mg/dL (6-20); Calcium 10.1 mg/dL (8.5-10.5); Carbon Dioxide 20 mmol/L (22-29); Chloride 104 mmol/L (98-107); Creatinine Clr Calc Pharmacy 163.0534; Globulin 3.4 g/dL (1.3-4.6); Glomerular Filtration Rate 91.3 mL/min (90-130); Glucose 142 mg/dL (65-115); Lipase 55 U/L (13-60); Osmolality Calculated 291 mOsm/kg (285-295); Potassium 3.2 mmol/L (3.5-5.1); Sodium 139 mmol/L (136-145); Total Bilirubin 0.6 mg/dL (0.15-1.2); Total Protein 7.4 g/dL (6.6-8.7)
[2025-01-15 10:45] LABS: HCG, Serum Qual Negative (Negative)
--- NOTE | 2025-01-15 10:57 | XR_ITS ---
WS: [id number] Exam: XR chest 1V portable [id number] Date/Time of Exam: 01/15/2025 10:58 AM Reason For Exam: dyspnea/cough Comparison 05/05/2024. The lungs are fully inflated and clear. Normal cardiomediastinal silhouette and regional bony elements. No pleural effusion. XR/XR chest 1V portable [id number] IMPRESSION: 1. Negative chest.
[2025-01-15] MEDS: iohexol 350 mg/mL 500 mL Btl (per mL) IV (11:15)
[2025-01-15 11:37] VITALS: BP 114/89; PULSE 86; O2SAT 98
[2025-01-15 12:05] VITALS: BP 113/86; PULSE 92; O2SAT 99
[2025-01-15 12:44] LABS: Bilirubin Urine Negative (Negative); Blood Urine Negative (Negative); Glucose Urine UA Negative (Normal); Ketones Urine Negative (Negative); Leukocyte Esterase Urine 1+ (Negative); Nitrate Urine Negative (Negative); Protein Urine Negative (Negative); Urine Appearance Clear (CLEAR); Urine Color Yellow (Yellow); Urobilinogen Urine 0.2 mg/dL (Negative)
[2025-01-15 12:51] LABS: Add Urine Microscopic? YES; Bacteria Urine 2+ /hpf; RBC Urine 0-2 /hpf (0-2); Squamous Epithelial Cell Urine 0-5 /hpf (0-5); WBC Urine 21-50 /hpf (0-5)
[2025-01-15 13:04] LABS: Add Urine Culture? Yes; Specific Gravity, Urine 1.068 (1.005-1.030)
[2025-01-15] MEDS: cefTRIAXone 1,000 mg SDV 1000 MG IVP (13:24)
[2025-01-15 13:30] VITALS: BP 132/80; PULSE 80; O2SAT 100
[2025-01-15 13:50] VITALS: BP 124/86; PULSE 87; O2SAT 99
== END 2025-01-15 13:50 | disposition home or self-care (01) ==
PROVIDERS: Emergency Medicine; Emergency Provider Family Medicine; PCP Nurse Practitioner Family
DX: R10.9 Unspecified abdominal pain (principal); N30.90 Cystitis, unspecified without hematuria; Z79.84 Long term (current) use of oral hypoglycemic drugs; Z87.891 Personal history of nicotine dependence
CPT/HCPCS: 36415; 71045; 74177; 80053; 81001; 83690; 84703; 85025; 87086; 96374; 99285; J0696

== ENCOUNTER 2025-03-11 16:40 | Outpatient (CLI) | payer OTHER, SELFPAY ==
--- NOTE | 2025-03-11 16:48 | CTR_ITS ---
PROCEDURE INFORMATION: Exam: CT Abdomen And Pelvis Without And With Contrast Exam date and time: 03/11/2025 4:59 PM Age: 44 years old Clinical indication: Condition or disease; Cancer; Other: Malignant neoplasm of endometrium; Prior surgery; Surgery date: 6+ months; Surgery type: Total hyst; Additional info: Malignant neoplasm of endometrium, pelvic pain with spotting TECHNIQUE: Imaging protocol: Computed tomography of the abdomen and pelvis without and with contrast. Radiation optimization: All CT scans at this facility use at least one of these dose optimization techniques: automated exposure control; mA and/or kV adjustment per patient size (includes targeted exams where dose is matched to clinical indication); or iterative reconstruction. Contrast material: OMNI 350; Contrast volume: 100 ml; Contrast route: INTRAVENOUS (IV); COMPARISON: CT abdomen pelvis w con* [id number] 01/15/2025 11:11 AM RADIATION DOSE METRICS: Total DLP (mGy-cm): 2866.73 FINDINGS: Liver: Hepatomegaly and hepatic steatosis with right lobe measuring up to 25 cm, slightly enlarged since December 2024 at which time right hepatic lobe measures 23 cm in length. No evidence of focal hepatic lesion. Gallbladder and biliary ducts: Grossly unremarkable. No evidence of inflammatory changes. No biliary dilatation. Pancreas: Grossly unremarkable. Spleen: Grossly unremarkable. Adrenal glands: Grossly unremarkable. Kidneys and ureters: No evidence of renal parenchymal abnormality. No hydronephrosis or ureteral stone. Stomach and bowel: No bowel obstruction or perienteric inflammatory changes. Appendix: Grossly unremarkable. Intraperitoneal space: No evidence of free air or fluid collection. Vasculature: No aneurysmal dilatation or dissection of the abdominal aorta. The celiac trunk, SMA and JACKIE are grossly patent. No evidence of IVC thrombus. The portal vein, SMV and splenic veins are grossly patent. Lymph nodes: No adenopathy. Urinary bladder: Grossly unremarkable. Reproductive: Prior hysterectomy. No evidence of residual or recurrent mass. Bones/joints: No evidence of acute fracture or aggressive osseous lesion. Moderate multilevel spondylosis of the lumbar spine with facet arthrosis and osteophytosis. Prominent L5-S1 circumferential disc osteophyte complex resulting in severe central stenosis and suspected impingement of the descending sacral nerve roots. Severe left-sided foraminal stenosis at L5-S1 with possible impingement of the exiting left L5 nerve root. Consider correlation with follow-up outpatient MRI to evaluate for neural impingement. Mild osteoarthritis of both hips. Soft tissues: No evidence of fluid collection or hematoma in the superficial soft tissues. CT/CT abdomen pelvis wo/w [id number] IMPRESSION: 1. No evidence of residual or recurrent lesion in the pelvis. 2. Severe L5-S1 central and left-sided foraminal stenosis with possible neural impingement. Consider correlation with follow-up outpatient MRI of the lumbar spine.
[2025-03-11] MEDS: iohexol 350 mg/mL 500 mL Btl (per mL) IV (17:17)
== END 2025-03-11 16:41 | disposition home or self-care (01) ==
PROVIDERS: PCP Nurse Practitioner Family; Visit Provider Obstetrics & Gynecology Gynecologic Oncology
DX: C54.1 Malignant neoplasm of endometrium (principal); M48.07 Spinal stenosis, lumbosacral region; R93.89 Abnormal findings on diagnostic imaging of other specified body structures; R16.0 Hepatomegaly, not elsewhere classified; K76.0 Fatty (change of) liver, not elsewhere classified; Z90.710 Acquired absence of both cervix and uterus; M47.896 Other spondylosis, lumbar region; M25.78 Osteophyte, vertebrae; M16.0 Bilateral primary osteoarthritis of hip
CPT/HCPCS: 74178